=== PATIENT | female | born 1980 | race Caucasian/White ===

== ENCOUNTER 2017-07-25 15:48 | Emergency (ER) | payer SELFPAY ==
[2017-07-25 15:54] VITALS: TEMP 98.1; BMI 30.5
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
[2017-07-25] MEDS ORDERED: FAMOTIDINE IV 20 MG/12 ML VIAL IVPB ONE (16:26)
[2017-07-25] MEDS ORDERED: MAG HYDROX/AL HYDROX/SIMETH 30 ML UNIT-DOSE CUP PO ONE (16:26)
[2017-07-25] MEDS ORDERED: FAMOTIDINE 20 MG/50 ML IVPB 20 MG/50 ML MG IVPB ONE (16:58)
[2017-07-25] MEDS ORDERED: MAG HYDROX/AL HYDROX/SIMETH 30 ML UNIT-DOSE CUP ONE (16:59)
[2017-07-25 17:36] LABS: URINE APPEARANCE Clear; URINE BILIRUBIN Negative (NEGATIVE); URINE BLOOD Trace-intact (NEGATIVE); URINE GLUCOSE (UA) Negative (NEGATIVE); URINE KETONE Negative (NEGATIVE); URINE LEUK ESTERASE 1+ (NEGATIVE); URINE NITRITE Negative (NEGATIVE); URINE PROTEIN Trace (NEGATIVE)
[2017-07-25 17:37] LABS: URINE COLOR YELLOW
[2017-07-25 17:40] LABS: BASO % 0.6 % (0-2.0); EOS % 2.5 % (0-4.5); HEMATOCRIT 41.2 % (32.4-45.2); HEMOGLOBIN 13.8 GM/dl (10.7-15.3); LYMPH % 18.5 % (8-40); MCH 30.2 pg (25.7-33.7); MCHC 33.6 g/dl (32.0-36.0); MEAN CELL VOLUME 89.7 fl (80-96); MEAN PLT VOLUME 9.1 fl (7.5-11.1); MONO % 8.8 % (3.8-10.2); NEUT % 69.6 % (42.8-82.8); PLATELET COUNT 363 K/MM3 (134-434); RBC 4.59 M/mm3 (3.60-5.2); RDW 12.3 % (11.6-15.6); WHITE BLOOD COUNT 10.9 K/mm3 (4.0-10.8)
[2017-07-25 17:51] LABS: ALBUMIN 4.2 g/dl (3.5-5.0); ALK PHOS 39 U/L (32-92); ANION GAP 7 (8-16); BILIRUBIN,TOTAL 0.3 mg/dl (0.2-1.0); BLOOD UREA NITROGEN 15 mg/dl (7-18); CALCIUM 9.2 mg/dl (8.4-10.2); CHLORIDE 102 mmol/L (98-107); CO2 24 mmol/L (22-28); CREATININE 0.7 mg/dl (0.6-1.3); GLUCOSE,RANDOM 88 mg/dl (74-106); POTASSIUM 4.3 mmol/L (3.5-5.1); SGOT/AST 19 U/L (10-42); SGPT/ALT 12 U/L (10-40); SODIUM 133 mmol/L (136-145); TOT PROT 7.3 g/dl (6.4-8.3)
[2017-07-25] MEDS ORDERED: FAMOTIDINE 20 MG TABLET PO ONE (18:07)
[2017-07-25] MEDS ORDERED: LACTULOSE 20 GM/30 ML UDC (FOR ORAL USE ONLY) PO PRN (18:07)
[2017-07-25 18:13] LABS: HCG,QUALITATIVE URINE NEGATIVE; URINE BACTERIA FEW /hpf (NEGATIVE); URINE RBC 0-2 /hpf (0-3)
[2017-07-25 18:32] VITALS: BP 115/75; PULSE 78
== END 2017-07-25 18:34 | disposition home or self-care (01) ==
LOC: FER 15:48
PROC: 3E033GC Introduction of Other Therapeutic Substance into Peripheral Vein, Percutaneous Approach (ICD-10-PCS; principal; 2017-07-25)
DX: R10.13 Epigastric pain (principal); M06.9 Rheumatoid arthritis, unspecified; J45.909 Unspecified asthma, uncomplicated
CPT/HCPCS: 36415; 76705-TC; 80053; 81003; 81015; 84703; 85025; 99283-25

== ENCOUNTER 2017-11-18 17:31 | Emergency (ER) | payer OTHER ==
[2017-11-18 17:40] VITALS: BP 114/79; PULSE 80; TEMP 99; BMI 30.2
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
--- NOTE | 2017-11-19 08:46 | EKG ---
Test Reason : Blood Pressure : / mmHG Vent. Rate : 065 BPM Atrial Rate : 065 BPM P-R Int : 146 ms QRS Dur : 068 ms QT Int : 404 ms P-R-T Axes : 055 031 034 degrees QTc Int : 420 ms NORMAL SINUS RHYTHM NORMAL ECG WHEN COMPARED WITH ECG OF 20-NOV-2015 16:27, NO SIGNIFICANT CHANGE WAS FOUND Confirmed by ERIN GUTIERREZ MD ([id number]) on 11/19/2017 8:46:18 AM Referred By: MD DYE Confirmed By:ERIN GUTIERREZ MD
== END 2017-11-18 18:33 | disposition home or self-care (01) ==
LOC: FER 17:31
DX: R07.89 Other chest pain (principal)
CPT/HCPCS: 93005; 99282-25

== ENCOUNTER 2018-02-24 11:43 | Emergency (ER) | payer OTHER ==
[2018-02-24 12:00] VITALS: BP 126/87; PULSE 99; TEMP 98.9; BMI 31.2
[2018-02-24] MEDS ORDERED: KETOROLAC TROMETHAMINE 60 MG/2 ML VIAL IM ONE (12:21)
[2018-02-24] MEDS ORDERED: KETOROLAC TROMETHAMINE 60 MG/2 ML VIAL ONE (12:25)
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
== END 2018-02-24 13:31 | disposition home or self-care (01) ==
LOC: JERFT 11:43
PROC: 3E0333Z Introduction of Anti-inflammatory into Peripheral Vein, Percutaneous Approach (ICD-10-PCS; principal; 2018-02-24)
DX: M54.5 Low back pain (principal); J45.909 Unspecified asthma, uncomplicated
CPT/HCPCS: 72100-TC-FY; 96372; 99281-25

== ENCOUNTER 2018-03-02 09:52 | Emergency (ER) | payer OTHER ==
[2018-03-02 09:59] VITALS: BMI 26.5
[2018-03-02 11:14] LABS: URINE APPEARANCE SLCLOUDY; URINE COLOR AMBER; URINE GLUCOSE (UA) NEGATIVE (NEGATIVE); URINE KETONE NEGATIVE (NEGATIVE); URINE NITRITE NEGATIVE (NEGATIVE)
--- NOTE | 2018-03-02 11:17 | PDOC ---
Attending Attestation - Resident Resident Name: AbyJosh - ED Attending Attestation I have performed the following: I have examined & evaluated the patient, The case was reviewed & discussed with the resident, I agree w/resident's findings & plan, Exceptions are as noted - HPI HPI: 03/02/18 16:25 Agree with Residents HPI - Physicial Exam PE: 03/02/18 16:25 Agree with Residents PE - Medical Decision Making 03/02/18 16:34 Low back discomfort normal neurologic examination normal bowel bladder incontinence normal rectal exam. Status post total patient feels better will discharge on short Medrol Dosepak and Valium when necessary patient will follow-up with orthopedics this week Findings, the need for follow-up and strict return instructions discussed with patient.
[2018-03-02 11:29] LABS: URINE LEUK ESTERASE 3+ (NEGATIVE); URINE PROTEIN 1+ (NEGATIVE)
[2018-03-02] MEDS ORDERED: KETOROLAC TROMETHAMINE 60 MG/2 ML VIAL IM ONE (11:47)
[2018-03-02] MEDS ORDERED: KETOROLAC TROMETHAMINE 60 MG/2 ML VIAL ONE (11:56)
[2018-03-02 12:03] LABS: CALCIUM OXALATE CRYSTALS RARE /hpf (NONE SEEN); EPI CELLS FEW /HPF (FEW); URINE MUCUS MANY; YEAST RARE
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
[2018-03-02 12:33] VITALS: BP 129/85; PULSE 66; TEMP 98.9
== END 2018-03-02 13:00 | disposition home or self-care (01) ==
LOC: JER 09:52
PROC: 3E0233Z Introduction of Anti-inflammatory into Muscle, Percutaneous Approach (ICD-10-PCS; principal; 2018-03-02)
DX: N39.0 Urinary tract infection, site not specified (principal); M54.5 Low back pain; Z87.09 Personal history of other diseases of the respiratory system; Z87.19 Personal history of other diseases of the digestive system
CPT/HCPCS: 81003; 81015; 99282-25

== ENCOUNTER 2018-04-24 16:49 | Emergency (ER) | payer OTHER ==
[2018-04-24 17:05] VITALS: BP 122/84; PULSE 90; TEMP 99; BMI 31.4
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
--- NOTE | 2018-04-24 17:47 | PDOC ---
Attending Attestation - HPI HPI: 04/24/18 18:17 The patient is a 38 year old female, with no significant past medical history, who presents to the emergency department with persistent draining since having liposuction to her abdomen, upper and lower back and bilateral arms while in the [place] a couple of weeks ago. She states she has been going to massage therapy. The patient denies chest pain, shortness of breath, headache and dizziness. The patient denies fever, chills, nausea, vomit, diarrhea and constipation. The patient denies dysuria, frequency, urgency and hematuria. - Physicial Exam PE: 04/24/18 18:23 GENERAL: Well-appearing, well-nourished. No apparent distress. HEENT: Normocephalic, atraumatic. PERRL, EOM intact. CARDIOVASCULAR: Normal S1, S2. Regular rate and rhythm. PULMONARY: Clear to auscultation bilaterally. ABDOMEN: (+) Rock hard abdomen. non-distended, non-tender. EXTREMITIES: Normal ROM in all four extremities. No gross deformities. SKIN: (+) Trocar to midline S1S2 region with 5 cm area of slightly fluctuant and mildly erythematous, mildly tender. Trocar site to bilateral arms intact without signs of cellulitis. Trocar site to upper back is intact without signs of cellulitis. Warm, dry. NEUROLOGICAL: No focal neurological deficits. - Medical Decision Making 04/24/18 18:17 Documentation prepared by Stephenie Adames, acting as medical physiologist for Susannah Gonzales MD EXAM#: TYPE/EXAM: RESULT: [id number] CT/LUMBAR SPINE CT W/O CONTRAST Lumbar spine CT (without contrast) Impression: No gross abscess is seen on noncontrast imaging. MRI evaluation is suggested, emergent versus nonemergent as clinically indicated. Reported By: Josemanuel Luna MD 04/24/182119 <Stephenie Adames - Last Filed: 04/24/18 21:52> - Resident Resident Name: Osiris Patiño - ED Attending Attestation I have performed the following: I have examined & evaluated the patient, The case was reviewed & discussed with the resident, I agree w/resident's findings & plan, Exceptions are as noted - Medical Decision Making 04/25/18 00:25 labs reviewed and no significant leukocytosis no fever no fluid collection on ct scan pt discharged <Susannah Gonzales - Last Filed: 04/25/18 00:25>
[2018-04-24 18:26] LABS: EOS % 2.9 % (0-4.5); HEMATOCRIT 37.3 % (32.4-45.2); HEMOGLOBIN 12.4 GM/dL (10.7-15.3); LYMPH % 21.4 % (8-40); MCH 29.2 pg (25.7-33.7); MCHC 33.2 g/dl (32.0-36.0); MEAN CELL VOLUME 87.9 fl (80-96); MEAN PLT VOLUME 7.6 fl (7.5-11.1); MONO % 10.7 % (3.8-10.2); PLATELET COUNT 846 K/MM3 (134-434); RBC 4.25 M/mm3 (3.60-5.2); RDW 14.3 % (11.6-15.6); WHITE BLOOD COUNT 8.6 K/mm3 (4.0-10.0)
[2018-04-24 19:00] LABS: ALBUMIN 3.6 g/dl (3.4-5.0); ALK PHOS 52 U/L (45-117); ANION GAP 7 MMOL/L (8-16); BILIRUBIN,TOTAL 0.2 mg/dL (0.2-1); BLOOD UREA NITROGEN 14 mg/dL (7-18); CALCIUM 9.4 mg/dL (8.5-10.1); CHLORIDE 107 mmol/L (98-107); CO2 25 mmol/L (21-32); CREATININE 0.9 mg/dL (0.55-1.3); GLUCOSE,RANDOM 98 mg/dL (74-106); POTASSIUM 4.7 mmol/L (3.5-5.1); SGOT/AST 20 U/L (15-37); SGPT/ALT 39 U/L (13-61); SODIUM 139 mmol/L (136-145); TOT PROT 7.4 g/dl (6.4-8.2)
[2018-04-24 19:13] LABS: PLATELET ESTIMATE INCREASED
--- NOTE | 2018-04-24 19:49 | PDOC ---
*Physical Exam - Vital Signs Last Vital Signs Temp Pulse Resp BP Pulse Ox 99 F 90 16 122/84 100 04/24/18 17:02 04/24/18 17:02 04/24/18 17:02 04/24/18 17:02 04/24/18 18:49 - Physical Exam Comments: General: Comfortable, no acute distress HEENT: PERRL, EOMI, MMM, voice normal Cards: RRR, no murmur appreciated Pulm: Comfortable on room air Abd: Nontender, nondistended Back: Midline low back with surgical trochanter site with surrounding erythema, TTP, no bleeding or drainage noted Ext: No LE edema. ROM intact. Strength 5/5 and equal bilaterally Vasc: Extremities WWP. Skin: Normal color, no rashes or lesions Neuro: A&Ox3, CN grossly intact, normal speech, motor/sensory grossly intact and symmetric Psych: Mood appropriate to situation ED Treatment Course - LABORATORY CBC & Chemistry Diagram: 04/24/18 18:18 04/24/18 18:18 - ADDITIONAL ORDERS Additional order review: Laboratory Results 04/24/18 04/24/18 04/24/18 18:50 18:18 18:18 Sodium 139 Potassium 4.7 Chloride 107 Carbon Dioxide 25 Anion Gap 7 L BUN 14 Creatinine 0.9 Creat Clearance w eGFR > 60 Random Glucose 98 Calcium 9.4 Total Bilirubin 0.2 AST 20 ALT 39 Alkaline Phosphatase 52 Total Protein 7.4 Albumin 3.6 Serum , Qual Negative Urine HCG, Qual Negative 04/24/18 18:18 RBC 4.25 MCV 87.9 MCHC 33.2 RDW 14.3 D MPV 7.6 D Neutrophils % 63.0 Lymphocytes % 21.4 Monocytes % 10.7 H Eosinophils % 2.9 Basophils % 2.0 Medical Decision Making - Medical Decision Making Charlene Carrington is a 38yo woman with no pertinent medical history who presents with back pain and swelling following liposuction in the [place] 3 weeks ago. Swelling and fluctuance noted at site of trochanter placement in her back. She reports completing a 10 day course of antibiotics and has not had any other problems following the procedure. - ED course notable for normal vitals, no fever, unremarkable labs - CT pending to rule out abscess or focal infection 04/24/18 21:32 - Reporting increased pain, now 6/10, following laying on her back for the CT. Acetaminophen PO for pain - CT completed. Radiology read pending 04/24/18 21:48 - CT read back - no abscess noted - Discussed with patient that there is no fluid to drain. She already has an appointment with her PMD tomorrow, may defer until Tuesday if preferred. Will send with a prescription for antibiotics. Will give first dose of keflex in the ED and prescribe 7 days at home. - Discussed use of OTC analgesics for pain control at home. Discussed return precautions. - Ms Carrington reports understanding and agreement with this plan. Discussed with Dr Gonzales. Karen Khalil PGY1 *DC/Admit/Observation/Transfer Diagnosis at time of Disposition: Localized swelling of back - Discharge Dispostion Disposition: HOME Condition at time of disposition: Stable Decision to Admit order: No - Referrals Referrals: Lamine Navarro MD [Staff Physician] - - Patient Instructions Printed Discharge Instructions: DI for Wound Infection Additional Instructions: Discharge Instructions: - You were seen in the ED for swelling, pain, and redness around the surgical site on your back. - A CT scan was completed, and it showed that the swelling is superficial - there is NO fluid collection that needs to be drained - A dose of antibiotics was given in the ED before you left. Please shrimp picker your prescription as early as possible tomorrow morning. It should be taken every 8 hours for the next 7 days. Please do not stop taking it early - finish the presciption - You may use acetaminophen (Tylenol) or ibuprofen (Motril, Advil) for pain. If needed, these can be alternated every 3-4 hours. - Heat or ice packs may be used for comfort - Follow up with your primary physician at your previously scheduled appointment - Seek immediate medical treatment if you have numbness or tingling in your legs or buttocks, leg weakness, bleeding or drainage from your back wound, the surrounding redness spreads significantly, or you have a high fever (101F) with no other cause. - Post Discharge Activity Forms/Work/School Notes: Back to Work
[2018-04-24] MEDS ORDERED: ACETAMINOPHEN 500 MG TABLET (FP) PO ONE (21:23)
[2018-04-24] MEDS ORDERED: CEPHALEXIN MONOHYDRATE 500 MG CAPSULE (UD) PO ONE (22:22)
[2018-04-24] MEDS ORDERED: CEPHALEXIN MONOHYDRATE 500 MG CAPSULE (UD) ONE (22:29)
== END 2018-04-24 22:51 | disposition home or self-care (01) ==
LOC: JER 16:49
DX: Y83.8 Other surgical procedures as the cause of abnormal reaction of the patient, or of later complication, without mention of misadventure at the time of the procedure (principal); Y81.8 Miscellaneous general- and plastic-surgery devices associated with adverse incidents, not elsewhere classified; J45.909 Unspecified asthma, uncomplicated; Z87.09 Personal history of other diseases of the respiratory system
CPT/HCPCS: 36415; 72131-TC; 80053; 84703; 85025; 99282-25

== ENCOUNTER 2018-04-29 12:48 | Emergency (ER) | payer OTHER ==
[2018-04-29 13:17] VITALS: BP 134/90; PULSE 82; TEMP 98; BMI 31.4
[2018-04-29] MEDS ORDERED: SULFAMETHOXAZOLE/TRIMETHOPRIM 800MG/160MG D.S. TABLET PO ONE (13:45)
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
[2018-04-29] MEDS ORDERED: SULFAMETHOXAZOLE/TRIMETHOPRIM 800MG/160MG D.S. TABLET ONE (13:47)
== END 2018-04-29 13:56 | disposition home or self-care (01) ==
LOC: FER 12:48
PROC: 0H96XZZ Drainage of Back Skin, External Approach (ICD-10-PCS; principal; 2018-04-29)
DX: L02.212 Cutaneous abscess of back [any part, except buttock and flank] (principal); T81.49XA Infection following a procedure, other surgical site, initial encounter
CPT/HCPCS: 87070; 87205; 99282-25

== ENCOUNTER 2018-11-19 10:24 | Emergency (ER) | payer OTHER | END 2018-11-19 13:00 | disposition home or self-care (01) | LOC: FER 10:24 ==

== ENCOUNTER 2019-06-22 05:15 | Day surgery (SDC) | payer OTHER ==
[2019-06-18 13:00] VITALS: BMI 31.8
[2019-06-22] MEDS ORDERED: BUPIVACAINE HCL/PF 0.5% (5 MG/ML) 30 ML VIAL IJ ONE ×2 (10:58→13:24)
[2019-06-22] MEDS ORDERED: ONDANSETRON 4 MG/2 ML VIAL IVPUSH PRN (12:41)
[2019-06-22] MEDS ORDERED: oxyCODONE HCL 5 MG TABLET PO PRN ×2 (12:41)
[2019-06-22] MEDS ORDERED: LACTATED RINGERS SOLUTION 1,000 ML IV SCH (12:45)
[2019-06-22] MEDS ORDERED: SUCCINYLCHOLINE CHLORIDE 200 MG/10 ML SYRINGE ONE (12:48)
[2019-06-22] MEDS ORDERED: PROPOFOL 20 ML ONE ×3 (12:48→13:35)
[2019-06-22] MEDS ORDERED: EPHEDRINE SULFATE/0.9% NACL/PF 50 MG/10 ML SYRINGE NR ONE (12:49)
--- NOTE | 2019-06-22 12:51 | HP ---
History & Physical Update - History History: No Change - Physical Physical: No Change - Assessment Assessment: No Change - Plan Plan: No Change
[2019-06-22] MEDS ORDERED: ROCURONIUM BROMIDE 50 MG/5 ML SYRINGE ONE (12:59)
[2019-06-22] MEDS ORDERED: LIDOCAINE HCL/PF 2% SDV 5ML VIAL ONE (13:08)
[2019-06-22] MEDS ORDERED: NEOSTIGMINE METHYLSULFATE 0.5 MG/ML - 10 ML MDV ONE (13:54)
[2019-06-22] MEDS ORDERED: GLYCOPYRROLATE 0.2 MG/1 ML VIAL ONE (13:55)
[2019-06-22] MEDS ORDERED: KETOROLAC TROMETHAMINE 30 MG/1 ML VIAL ONE (14:32)
--- NOTE | 2019-06-22 14:32 | OP ---
Operative Note - Note: Operative Date: 06/22/19 (dic [id number]) Pre-Operative Diagnosis: Multiparity, IUD in situ Operation: Removal of IUD, Bilateral laparoscopic salpingectomy Findings: see dictation Implants: none Post-Operative Diagnosis: Same as Pre-op Surgeon: Moe Thomas Anesthesia: General Specimens Removed: IUD, bilateral fallopian tubes Estimated Blood Loss (mls): 5 Operative Report Dictated: Yes
--- NOTE | 2019-06-22 14:41 | SURG ---
Surgery Drier Helper Note Drier Helper: Evelin Delaney PA-C Date of Service: 06/22/19 Diagnosis: Multiparity, IUD in situ Procedure: Removal of IUD, Bilateral laparoscopic salpingectomy I was present for the entirety of the operative procedure. For further detail, please refer to operative report. Visit type - Case Type Case Type: Scheduled - Emergency Emergency Visit: No - New patient This patient is new to me today: Yes Date on this admission: 06/22/19
[2019-06-22] MEDS ORDERED: ONDANSETRON 4 MG/2 ML VIAL ONE (16:45)
[2019-06-22] MEDS ORDERED: ONDANSETRON 4 MG/2 ML VIAL IVPUSH ONE (16:45)
[2019-06-22 17:18] VITALS: TEMP 97.3
[2019-06-22 18:52] VITALS: BP 103/68; PULSE 68
--- NOTE | 2019-06-22 18:56 | OP ---
DATE OF OPERATION: 06/22/2019 ATTENDING SURGEON: Rosalva Thomas MD. PREOPERATIVE DIAGNOSIS: This is a 39-year-old multiparous female desiring sterilization, intrauterine device in situ. PREOPERATIVE DIAGNOSIS: This is a 39-year-old multiparous female desiring sterilization, intrauterine device in situ. PROCEDURE: Laparoscopic bilateral salpingectomy and intrauterine device removal. ANESTHESIA: General anesthesia. ESTIMATED BLOOD LOSS: Minimal. INTRAVENOUS FLUIDS: Per Anesthesia. URINE: Clear, 300 mL. ROLL FORGER: DERIK Delaney. SPECIMEN REMOVED: Bilateral fallopian tubes and IUD copper Paragard. FINDINGS: Normal abdominal wall anatomy and moderate amount of subcutaneous adipose tissue, no visceral adhesions noted. Bilateral tubes and ovaries consistent with normal anatomy. Uterus approximately 9 cm in length, normal in appearance. DESCRIPTION OF PROCEDURE: The patient was taken to the operating room where anesthesia was found to be adequate. She was then prepped and draped in the normal sterile fashion. Bello catheter was placed atraumatically. Appropriate timeout took place. Vaginal exam revealed normal vaginal mucosa and cervix no evidence of prolapse or vaginal wall defects. The uterus was stenotic and progressively dilated with Hegar dilators. The intrauterine grasper was utilized to grasp the IUD strings and remove the IUD. Paragard was removed intact and sent to pathology. No active bleeding noticed. The HUMI manipulator was placed without difficulty to a depth of 8 cm and balloon tip inflated. All instruments were retrieved from the vagina. Attention was then directed to anterior abdominal wall where an infraumbilical vertical incision was made with the scalpel to accommodate a Lidia trocar. Subcutaneous tissues were bluntly dissected off the underlying fascia, elevated with Madeline clamps. The fascia was dissected with the Raymond scissors and peritoneum was entered bluntly. The Lidia trocar was placed without difficulty, had an insufflating media activated. Proper placement was confirmed via the laparoscope, no evidence of active bleeding at the point of entry of adhesions. The viscera underneath the point of entry revealed no evidence of trauma. 360 inspection of the abdominal cavity revealed no anomalies. The uterus was elevated with the HUMI manipulator, findings as noted above. Right lower quadrant 5-mm trocar was placed under constant visualization without difficulty followed by a left lower quadrant one without difficulty as well. The left fallopian tube was followed to its fimbriated end and elevated with an atraumatic grasper. The mesosalpinx immediately adjacent to the tube was cauterized and transected with the LigaSure instrument. This was done as the tube was elevated away from any surrounding viscera. The tube was excised in its entirety. No active bleeding from the surgical stump. Attention was then directed to the contralateral fallopian tube, which underwent the exact same procedure without difficulty. Excellent hemostasis noted. The scope was removed and placed to left lower quadrant port, and the tubes were removed individually with the grasper through the infraumbilical port. Specimens were sent to pathology. Secondary inspection revealed no issues. The RLQ port and LLQ port were removed under constant visualization. All insufflating media evacuated from the abdomen and laparoscope was removed. The infraumbilical port was removed, and the fascial incision was reapproximated with 2 interrupted 0 Vicryl sutures as the fascia was elevated from any underlying viscera. The fascial defect was completely obliterated and confirmed by the palpation by the surgeon. Skin incision was reapproximated with 4-0 Biosyn and subcuticular sutures. Attention was redirected to the vaginal area, bello and HUMI were removed and no active bleeding was noted. Patient tolerated the procedure well and transferred to the recovery room in stable condition. Instrument count was reported correct x2. ROSALVA THOMAS MD [id number] MTDD
--- NOTE | 2019-06-26 16:01 | PATH ---
Surgical Pathology Report Patient Name: VINAY RICO [facility]. Rec. #: [id number] /Age/Gender: 1980 (Age: 39) / F Account: [id number] Location: [facility] SURGICAL Taken: 06/22/2019 Received: 06/25/2019 Reported: 06/26/2019 Physicians: Moe Thomas MD Specimen(s) Received A: BILATERAL FALLOPIAN TUBES B: IUD Clinical History Multiparity Final Diagnosis A. BILATERAL FALLOPIAN TUBES, SALPINGECTOMY: TWO PORTIONS OF FALLOPIAN TUBE WITH COMPLETE CROSS SECTION OF THE LUMENS. FOCAL ENDOSALPINGIOSIS IDENTIFIED. B. IUD, REMOVAL: CONSISTENT WITH INTRA-UTERINE DEVICE. GROSS EXAMINATION ONLY. Electronically Signed Leeroy Freeman M.D. Gross Description A. Received in formalin labeled "bilateral fallopian tubes," right tissue fimbriated fallopian tubes measuring 5.5 and 6.0 cm in length. The outer surfaces are elmore purple and smooth. Sectioning reveals unremarkable fallopian tube lumen. Traveling Auditor sections are submitted in 4 cassettes as follows: 1-shorter fallopian tube fimbria; 3-cross sections of shorter fallopian tube; 3-longer fallopian tube fimbria; 4-cross sections of longer fallopian tube. B. Received fresh labeled "removed IUD," is a 3.5 cm in length T-shaped device with attached string, consistent with an IUD. No soft tissue is present. No sections are submitted, gross only. /06/25/2019 saudi06/25/2019
== END 2019-06-22 18:45 | disposition home or self-care (01) ==
LOC: JASU-SURG 05:15
PROVIDERS: ATTEND Student in an Organized Health Care Education/Training Program
PROC: 0UPD7HZ Removal of Contraceptive Device from Uterus and Cervix, Via Natural or Artificial Opening (ICD-10-PCS; 2019-06-22)
PROC: 0UT74ZZ Resection of Bilateral Fallopian Tubes, Percutaneous Endoscopic Approach (ICD-10-PCS; principal; 2019-06-22 12:00)
DX: Z30.2 Encounter for sterilization (principal); Z30.432 Encounter for removal of intrauterine contraceptive device
CPT/HCPCS: 88300-TC; 88302-TC; 94760

== ENCOUNTER 2019-07-03 16:29 | Emergency (ER) | payer OTHER ==
[2019-07-03 16:45] VITALS: BMI 31.6
[2019-07-03] MEDS ORDERED: ACETAMINOPHEN 1000 MG/100 ML VIAL (NON FORMULARY) IVPB ONE (18:07)
--- NOTE | 2019-07-03 18:31 | PDOC ---
Documentation entered by Lisa Mccormick SCRIBE, acting as scribe for Susannah Gonzales MD. Susannah Gonzales MD: This documentation has been prepared by the barrye, Lisa Mccormick SCRIBE, under my direction and personally reviewed by me in its entirety. I confirm that the documentation accurately reflects all work, treatment, procedures, and medical decision making performed by me. Attending Attestation - Resident Resident Name: Sandoval Gonzales - ED Attending Attestation I have performed the following: I have examined & evaluated the patient, The case was reviewed & discussed with the resident, I agree w/resident's findings & plan, Exceptions are as noted - HPI HPI: 07/04/19 00:06 39-year-old female who experienced sharp left-sided chest pain that went to her jaw and upper left shoulder - Physicial Exam PE: 07/03/19 18:42 Well-nourished well-developed 39-year-old female with complaint of left-sided chest discomfort Head is normocephalic atraumatic Neck is supple, no bruits Lungs are clear to auscultation bilaterally CVS regular rate rhythm S1-S2 Abdomen soft, nontender Skin warm and dry Extremities no pitting edema Neuro patient is alert and oriented x3, seated comfortably on the gurney ,no focal neuro deficits - Medical Decision Making 07/03/19 18:40 Past surgical history the end of May she had her Fallopian tubes removed she Did have 1 week ago a sharp pain in left inferior mammary area that went to the mid chest her scapula and her jaw Then today she was driving and she had a similar pain that went to her her jaw her scapula and then she had some tingling and discomfort in the left upper arm Family history no history of early cardiac demise Social history she does not use tobacco and never has 07/03/19 19:21 EKG is normal sinus rhythm at 74 bpm, QTC is 426 ms there is no signs of ischemia, she is inverted T waves in V1 07/03/19 19:22 She has had no recent travel The patient does not complain of shortness of breath is no dyspnea on exertion, she is not tachycardic and she is not hypoxic 07/03/19 21:38 if second trop is negative ,pt angelina be discharged
[2019-07-03] MEDS ORDERED: ACETAMINOPHEN INJECTION 100 ML IVPB ONE (19:03)
[2019-07-03] MEDS ORDERED: SODIUM CHLORIDE 0.9% 500 ML INFUS.BAG IV ONE (19:09)
[2019-07-03 19:17] LABS: BASO % 1.2 % (0-2.0); HEMATOCRIT 41.5 % (32.4-45.2); HEMOGLOBIN 13.5 GM/dL (10.7-15.3); LYMPH % 22.3 % (8-40); MCH 29.4 pg (25.7-33.7); MCHC 32.6 g/dl (32.0-36.0); MEAN CELL VOLUME 90.1 fl (80-96); MEAN PLT VOLUME 8.3 fl (7.5-11.1); MONO % 8.9 % (3.8-10.2); NEUT % 65.6 % (42.8-82.8); PLATELET COUNT 419 K/MM3 (134-434); RDW 12.4 % (11.6-15.6); WHITE BLOOD COUNT 10.1 K/mm3 (4.0-10.0)
[2019-07-03 19:57] LABS: ALBUMIN 3.7 g/dl (3.4-5.0); ALK PHOS 45 U/L (45-117); ANION GAP 7 MMOL/L (8-16); BILIRUBIN,TOTAL 0.2 mg/dL (0.2-1); BLOOD UREA NITROGEN 13.1 mg/dL (7-18); CALCIUM 8.7 mg/dL (8.5-10.1); CHLORIDE 106 mmol/L (98-107); CO2 23 mmol/L (21-32); CREATININE 0.8 mg/dL (0.55-1.3); GLUCOSE,RANDOM 78 mg/dL (74-106); POTASSIUM 4.4 mmol/L (3.5-5.1); SGOT/AST 17 U/L (15-37); SGPT/ALT 23 U/L (13-61); SODIUM 136 mmol/L (136-145); TOT PROT 7.2 g/dl (6.4-8.2)
[2019-07-03 20:07] LABS: INR 0.97 (0.83-1.09); PROTHROMBIN TIME (PATIENT) 11.5 SEC (9.7-13.0)
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
[2019-07-03 22:12] VITALS: BP 110/76; PULSE 69; TEMP 98.3
--- NOTE | 2019-07-04 11:36 | EKG ---
Test Reason : Blood Pressure : / mmHG Vent. Rate : 074 BPM Atrial Rate : 074 BPM P-R Int : 130 ms QRS Dur : 074 ms QT Int : 384 ms P-R-T Axes : 038 020 030 degrees QTc Int : 426 ms NORMAL SINUS RHYTHM NORMAL ECG WHEN COMPARED WITH ECG OF 19-NOV-2018 11:14, NO SIGNIFICANT CHANGE WAS FOUND Confirmed by ERIN GUTIERREZ MD ([id number]) on 07/04/2019 11:36:09 AM Referred By: Confirmed By:ERIN GUTIERREZ MD
== END 2019-07-03 22:12 | disposition home or self-care (01) ==
LOC: JER 16:29
PROC: 3E033NZ Introduction of Analgesics, Hypnotics, Sedatives into Peripheral Vein, Percutaneous Approach (ICD-10-PCS; principal; 2019-07-03)
DX: R07.9 Chest pain, unspecified (principal)
CPT/HCPCS: 36415; 71046-TC-FY; 80053; 82550; 84484; 84703; 85025; 85610; 93005; 93010; 96374; 99284-25; J0131

== ENCOUNTER 2024-04-10 17:35 | Emergency (ER) | payer OTHER ==
[2024-04-10 17:50] VITALS: TEMP 97.8; BMI 31.8
[2024-04-10] MEDS ORDERED: ACETAMINOPHEN INJECTION 100 ML ONE (18:47)
[2024-04-10] MEDS: ACETAMINOPHEN 1000 MG/100 ML BAG IVPB ONE (19:04)
[2024-04-10 19:20] LABS: BASO % 0.9 % (0-2.0); EOS % 1.7 % (0-4.5); HEMATOCRIT 42.7 % (32.4-45.2); HEMOGLOBIN 14.2 GM/dL (10.7-15.3); LYMPH % 25.9 % (8-40); MCH 30.6 pg (25.7-33.7); MCHC 33.2 g/dl (32.0-36.0); MEAN PLT VOLUME 7.7 fl (7.5-11.1); MONO % 7.7 % (3.8-10.2); NEUT % 63.8 % (42.8-82.8); PLATELET COUNT 425 10^3/uL (134-434); RBC 4.64 M/mm3 (3.60-5.2); RDW 12.2 % (11.6-15.6); WHITE BLOOD COUNT 7.6 K/mm3 (4.0-10.0)
[2024-04-10 19:41] LABS: POTASSIUM 3.8 mmol/L (3.5-5.1)
[2024-04-10 19:43] LABS: ALBUMIN 3.8 g/dl (3.4-5.0)
[2024-04-10 19:46] LABS: CREATININE 0.7 mg/dL (0.55-1.3)
[2024-04-10 19:47] LABS: BILIRUBIN,TOTAL 0.6 mg/dL (0.2-1); TOT PROT 7.1 g/dl (6.4-8.2)
[2024-04-10 21:00] VITALS: BP 132/89; PULSE 69; RESP 18
== END 2024-04-10 21:01 | disposition home or self-care (01) ==
LOC: JER 17:35
PROC: 3E033NZ Introduction of Analgesics, Hypnotics, Sedatives into Peripheral Vein, Percutaneous Approach (ICD-10-PCS; principal; 2024-04-10)
DX: R00.2 Palpitations (principal)
CPT/HCPCS: 36415; 71046-TC-FY; 80053; 83690; 84439; 84443; 84484; 84703; 85025; 93005; 93010; 99285-25; J0131